=== PATIENT | female | born 1975 ===

== ENCOUNTER → 2020-03-11 | Outpatient (CLI) | payer OTHER | LOC: ZCOL.LAB 16:26 | DX: Z01.812 Encounter for preprocedural laboratory examination (principal); Z20.828 Contact with and (suspected) exposure to other viral communicable diseases ==

== ENCOUNTER → 2020-04-05 | Outpatient (CLI) | payer OTHER | LOC: ZCOL.LAB 15:48 | DX: Z20.828 Contact with and (suspected) exposure to other viral communicable diseases (principal) ==